=== PATIENT | female | born 1940 | race Caucasian/White ===

== ENCOUNTER 2017-08-29 08:10 | Day surgery (SDC) | payer OTHER ==
[~2017-08-29 08:10] MED LIST: ADVIL100 MG PO; ANAS1 PO; ASPI81EC PO; Acetaminophen325 M1 PO; BIOTIN2500 MCG PO; CALCIUM WITH V1 EACH PO; CHOL10002 PO; CIPR500 PO; CYAN100 PO; DOCCAL240 PO; FISH1000 PO; FLUO20 PO; Fish Oil 1,0001 EAC3 PO; GLIP10 PO; INSN100I SC; IRON PO; Icaps Areds Fo1 EACH PO; LISI20 PO; METF500 PO; METO25ER PO; OMEP20ER PO; POMEGRANATE PO; PROM25 PO; RANI150 PO; ROSU10TA PO; SIME80CH PO; SIMV40 PO; VITAMIN B12 INJ INJ; Zofran4 MG PO; [UNRECOGNIZED DRUG - OTHER]
[2017-09-03] MEDS ORDERED: METF500 PO (09:40)
== END 2017-08-29 23:17 | disposition home or self-care (01) ==
LOC: MOI MAM 08:10
PROC: BH00ZZZ Plain Radiography of Right Breast (ICD-10-PCS; principal; 2017-08-29)
DX: R92.8 Other abnormal and inconclusive findings on diagnostic imaging of breast (principal)
CPT/HCPCS: 19281

== ENCOUNTER 2018-02-09 09:30 | Day surgery (SDC) | payer OTHER | END 2018-02-09 22:37 | disposition home or self-care (01) | LOC: CT 09:30 | PROC: 0QB23ZX Excision of Right Pelvic Bone, Percutaneous Approach, Diagnostic (ICD-10-PCS; principal; 2018-02-09) | DX: C50.311 Malignant neoplasm of lower-inner quadrant of right female breast (principal); C79.51 Secondary malignant neoplasm of bone | CPT/HCPCS: 20225; 77012; 88305; 88341; 88342; 88360 ==

== ENCOUNTER → 2018-03-19 | Outpatient (CLI) | payer OTHER ==
[2018-03-19 12:17] LABS: Source, Urine Clean Catch
[2018-03-19 12:43] LABS: Bilirubin, Urine Neg (Neg); Blood, Urine 1+ (Neg); Glucose Qualitative, Urine Neg (Neg); Ketones, Urine Neg (Neg); Leukocyte Esterase, Urine 3+ (Neg); Nitrite, Urine Pos (Neg); Protein, Urine 1+ (Neg); Urobilinogen, Urine NORM (Normal)
[2018-03-19 12:57] LABS: Appearance, Urine Hazy (Clear); Color, Urine Yellow (P-Yellow)
[2018-03-19 13:10] LABS: Bacteria Mod /hpf; Squamous Epithelial Cells Rare /hpf (Few); White Blood Cells, Urine 50-100 /hpf (0-5)
== END ==
LOC: LAB 12:15 → LAB SHORT 12:15
PROVIDERS: Internal Medicine Hematology & Oncology
DX: N39.0 Urinary tract infection, site not specified (principal)
CPT/HCPCS: 81001; 87077; 87086; 87186

== ENCOUNTER 2020-10-29 20:43 | Emergency (ER) | payer OTHER ==
[~2020-10-29] VITALS: Ht 167.6 cm; Wt 56.2 kg
[2020-10-29 21:03] LABS: BASOPHILS ABSOLUTE AUTO 0.07 K/mm3 (0.00-0.23); BASOPHILS PERCENT AUTO 1 % (0-2); EOSINOPHILS ABSOLUTE AUTO 0.08 K/mm3 (0.00-0.68); EOSINOPHILS PERCENT AUTO 1 % (0-6); Hematocrit 30.9 % (33.0-51.0); Hemoglobin 10.5 g/dL (11.5-16.0); IMMATURE GRAN ABSOLUTE AUTO 0.02 K/mm3 (0.00-0.10); IMMATURE GRAN PERCENT AUTO 0 % (0-1); LYMPHOCYTES ABSOLUTE AUTO 4.42 K/mm3 (0.84-5.20); LYMPHOCYTES PERCENT AUTO 62 % (21-46); MONOCYTES ABSOLUTE AUTO 0.52 K/mm3 (0.16-1.47); MONOCYTES PERCENT AUTO 7 % (4-13); Mean Corpuscular Volume 106 fL (80-100); Mean Platelet Volume 9.9 fL (9.1-12.4); NEUTROPHILS ABSOLUTE AUTO 2.04 K/mm3 (1.96-9.15); NEUTROPHILS PERCENT AUTO 29 % (41-73); Platelet Count 118 K/mm3 (150-400); RDW Standard Deviation 58.1 fL (35.1-46.3); Red Blood Cell Count 2.92 M/mm3 (3.80-5.20); White Blood Cell Count 7.15 K/mm3 (4.00-11.30)
[2020-10-29 21:39] LABS: Alanine Aminotransfer (ALT/SGP 23 U/L (12-78); Albumin, Blood 3.2 g/dL (3.4-5.0); Alk Phos 85 U/L (50-136); Anion Gap 7 mmol/L (6-16); Aspartate Aminotrans (AST/SGOT 39 U/L (12-37); Bilirubin, Total 0.3 mg/dL (0.1-1.0); Blood Urea Nitrogen 12 mg/dL (8-24); Bun/Creatinine Ratio 21.5 (12.0-20.0); CO2, Blood 22 mmol/L (21-32); Calcium, Blood 7.8 mg/dL (8.5-10.1); Chloride, Blood 115 mmol/L (98-108); Creatinine, Blood 0.56 mg/dL (0.40-1.00); Ethanol (Alcohol), Blood, Med 231 mg/dL; Globulin, Blood 3.1 g/dL (2.2-4.0); Glomerular Filtration Rate >60 (60-); Glucose, Blood 82 mg/dL (70-99); Potassium, Blood 3.9 mmol/L (3.5-5.5); Sodium, Blood 144 mmol/L (136-145); Total Protein, Blood 6.3 g/dL (6.4-8.2); Troponin I <0.015 ng/mL (0.000-0.040)
[2020-10-29] MEDS ORDERED: IBRANCE75 MG PO (22:42)
[2020-10-29] MEDS ORDERED: CHEMO MED (22:42)
== END 2020-10-29 23:30 | disposition home or self-care (01) ==
LOC: ER 20:43
PROVIDERS: Physician Assistant
DX: S01.01XA Laceration without foreign body of scalp, initial encounter (principal); E11.9 Type 2 diabetes mellitus without complications; Z88.5 Allergy status to narcotic agent; Z79.899 Other long term (current) drug therapy; Z79.84 Long term (current) use of oral hypoglycemic drugs; Z87.891 Personal history of nicotine dependence; W18.30XA Fall on same level, unspecified, initial encounter
CPT/HCPCS: 12001; 70450; 80053; 84484; 85025; 93005; 93010; 99284-25; G0480

== ENCOUNTER 2021-03-29 08:33 | Day surgery (SDC) | payer OTHER ==
[~2021-03-29] VITALS: Ht 167.6 cm; Wt 49.8 kg
[~2021-03-29 08:33] MED LIST changes: +CHEMO MED; +IBRANCE75 MG PO; +MECL12.5 PO; +POTASSIUM PO
--- NOTE | 2021-03-29 09:09 | NUR ---
Ambulatory in Day Surgery History, Chart, Medications and Allergies reviewed before start of procedure. Lungs clear T/O to Auscultation. Patient confirms NPO status and agrees with scheduled surgery. Pre-Op teaching done. Pt verbalizes understanding. Patient States Post-Procedure ride home has been arranged.
--- NOTE | 2021-03-29 11:19 | NUR ---
RECIEVED PATIENT AND REPORT FROM PACU. VSS DRSSING IN PLACE CLEAN DRY INTACT GIVEN WATER AND THEN A CHEESE STICK AND JELLO PER REQUEST
--- NOTE | 2021-03-29 11:47 | NUR ---
Discharge instructions reviewed with patient. Patient verbalizes understanding. Copy given to patient to take home. Discharged via wheelchair to private car for ride home.
== END 2021-03-29 23:04 | disposition home or self-care (01) ==
LOC: ORSCMMR 08:33 → ORD 09:30 → ORSCMMR 09:30
PROVIDERS: Surgery
PROC: B546ZZA Ultrasonography of Right Subclavian Vein, Guidance (ICD-10-PCS; principal; 2021-03-29 09:30)
PROC: 05H533Z Insertion of Infusion Device into Right Subclavian Vein, Percutaneous Approach (ICD-10-PCS; principal; 2021-03-29 09:30)
DX: C79.51 Secondary malignant neoplasm of bone (principal); E11.9 Type 2 diabetes mellitus without complications; Z79.899 Other long term (current) drug therapy
CPT/HCPCS: 77001; 82947; C1788; J0690; J1100; J1642; J2250; J2370; J2405; J2704; J3010; J7120